=== PATIENT | male | born 1995 | race Caucasian/White ===

== ENCOUNTER 2020-12-21 19:46 | Emergency (ER) | payer BC, OTHER ==
[2020-12-21 20:03] VITALS: BP 143/80; PULSE 90; TEMP 98.1; BMI 25.0
[2020-12-21] MEDS ORDERED: LIDOCAINE 5% TOPICAL PATCH TP ONE (20:36)
[2020-12-21] MEDS ORDERED: LIDOCAINE 5% TOPICAL PATCH ONE (20:36)
[2020-12-21] MEDS ORDERED: LIDOCAINE PATCH REMOVAL MC SCH (22:00)
== END 2020-12-21 20:40 | disposition home or self-care (01) ==
LOC: FER 19:46
DX: M25.511 Pain in right shoulder (principal)
CPT/HCPCS: 73030-TC-RT-FY; 99283-25